=== PATIENT | female | born 1990 | race Caucasian/White ===

== ENCOUNTER → 2019-11-22 | Outpatient (CLI) | payer MEDICAID ==
--- NOTE | 2019-11-22 16:37 | RADIOLOGY REPORT (SQ) ---
EXAM DESCRIPTION: U/S OB 14+ TRNABD 1GES W/O DOP COMPLETED DATE/TIME: 11/22/2019 4:12 pm REASON FOR STUDY: Z34.82 ENCOUNTER FOR SUPRVSN OF NORMAL , SECOND TRIMESTER Z34.82 ENCOUNT ER FOR SUPRVSN OF NORMAL , SECOND TRI COMPARISON: None. TECHNIQUE: Static and Dynamic grayscale imaging performed of gravid uterus using transabdominal appr oach. Additional selected color Doppler and spectral images recorded. All stored on PACS. LIMITATIONS: None. FINDINGS: FETUSES SEEN:1 EGA: 27 weeks 1 day. Calculated using BPD,FL,HC,AC documented on images. Discrepancy with clinical d ates ADAMARIS: 02/20/2020 EFW: 1,079 grams PERCENTILE: Not calculated. TAHIR: 6.9 PLACENTA: Posterior. Heterogeneous hypoechoic subchorionic appearance probably due to fibrin deposit ion. PRESENTATION: Breech. ANATOMY: HEART RATE: 157 beats per minute. FOUR CHAMBER HEART: Visualized. THREE VESSEL CORD: Yes. CORD INSERTION: Visualized. KIDNEYS AND BLADDER: Visualized. Appear normal. STOMACH: Visualized. Appears normal. SPINE: Normal as visualized. BRAIN AND LATERAL VENTRICLES: Visualized. Appear normal. OTHER: No other significant finding. MATERNAL ADNEXA: Maternal ovaries not visualized. CERVICAL LENGTH: 2.9 cm. Closed. OTHER: No other significant finding. IMPRESSION: LIVING INTRAUTERINE . ESTIMATED GESTATIONAL AGE 27 weeks 1 day. NO VISUALIZED ANOMALIES. Trimester of : Second trimester - 13 weeks 1 day to 27 weeks 6 days. TECHNICAL DOCUMENTATION: JOB ID: [id number] 2010 [employer]- All Rights Reserved Reading location - IP/workstation name: [email or web address]
== END ==
LOC: RAD 15:19
PROVIDERS: ATTEND Midwife
DX: Z34.82 Encounter for supervision of other normal pregnancy, second trimester (principal); Z3A.27 27 weeks gestation of pregnancy
CPT/HCPCS: 76805

== ENCOUNTER 2020-02-07 16:44 | Observation (INO) | payer MEDICAID ==
[2020-02-07 18:24] LABS: APPEARANCE,URINE CLEAR; BILIRUBIN,URINE NEGATIVE (NEGATIVE); COLOR,URINE STRAW; GLUCOSE, URINE NEGATIVE (NEGATIVE); KETONES,URINE NEGATIVE (NEGATIVE); LEUKOCYTE ESTERASE,URINE TRACE (NEGATIVE); NITRITE,URINE NEGATIVE (NEGATIVE); PROTEIN,URINE NEGATIVE (NEGATIVE); URINE SPECIFIC GRAVITY 1.004; UROBILINOGEN,URINE NEGATIVE mg/dL (<2.0)
[2020-02-07 18:45] LABS: URINE AMPHETAMINES SCREEN NEGATIVE; URINE BARBITURATES SCREEN NEGATIVE; URINE BENZODIAZEPINES SCREEN NEGATIVE; URINE MARIJUANA (THC) SCREEN NEGATIVE; URINE METHADONE SCREEN NEGATIVE; URINE PHENCYCLIDINE SCREEN NEGATIVE
[2020-02-07 19:05] LABS: URINE COCAINE SCREEN UNCONFIRMED POSITIVE
--- NOTE | 2020-02-07 19:18 | RADIOLOGY REPORT (SQ) ---
EXAM DESCRIPTION: U/S PROFILE W/O STRESS IMAGES COMPLETED DATE/TIME: 02/07/2020 6:58 pm REASON FOR STUDY: suboxone, non reactive NST COMPARISON: None. TECHNIQUE: Limited altamirano-scale realtime and static images of the fetus to measure specified parameter s. LIMITATIONS: None. FINDINGS: HEART RATE: 137 beats per minute. LV P: 4.3 x 6.1 cm. BREATHING MOVEMENT: 2 points. MOVEMENT: 2 points. POSTURE AND TONE: 2 points. QUALITATIVE TAHIR: 2 points. OTHER: No other significant finding. IMPRESSION: BIOPHYSICAL PROFILE: 04/19. Trimester of : Third - 28 weeks to delivery COMMENT: BREATHING MOVEMENTS: 2 POINTS: PRESENT 0 POINTS: ABSENT MOTION: 2 POINTS: PRESENT 0 POINTS: ABSENT TONE: 2 POINTS: PRESENT 0 POINTS: ABSENT AMNIOTIC FLUID VOLUME: 2 POINTS: LARGEST POCKET GREATER THAN 2 CM DEPTH. 0 POINTS: NO POCKET OF 2 CM. TECHNICAL DOCUMENTATION: JOB ID: [id number] 2010 [employer]- All Rights Reserved Reading location - IP/workstation name: [email or web address]
[2020-02-07] MEDS ORDERED: RINGERS SOLUTION,LACTATED 1,000 ML IV ONE (20:46)
[2020-02-07] MEDS ORDERED: RINGERS SOLUTION,LACTATED 1,000 ML IV PRN (20:46)
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
[2020-02-07] MEDS ORDERED: HYDROXYZINE PAMOATE 50 MG CAPSULE ONE (23:38)
[2020-02-07] MEDS ORDERED: HYDROXYZINE PAMOATE 50 MG CAPSULE PO ONE (23:59)
--- NOTE | 2020-02-08 07:09 | Non Stress Test Report ---
Non Stress Test Datetime Report Generated by CPN: 02/08/2020 07:09 DEMOGRAPHIC Test Number: 1 EGA NST: 38.2 EGA NST: 38.1 INDICATION Indication for Study (NST) Other: Suboxone Use Indication for Study (NST) Other: Suboxone VITAL SIGNS Temperature - NST: 98.7 Pulse - NST: 96 RESP - NST: 12 NBPSYS NST: 115 NBPDIA NST: 75 MONITORING Monitor Explained: Monitor Explained; Test Explained; Patient Verbalized Understanding Monitor Explained: Monitor Explained; Test Explained; Patient Verbalized Understanding Time on Monitor: 02/08/2020 18:07 Time on Monitor: 02/07/2020 16:52 Time off Monitor: 02/08/2020 18:27 NST Duration: 20 NST INTERVENTIONS NST Interventions: PO Hydration; IV Fluids; Reposition Patient NST Interventions: PO Hydration; Reposition Patient Physician Notified NST: Kevin WRIGHT Physician Notified NST: Kristin Griffin RN BABY A: [id number] BABY A Movement : Present Movement : Present Contraction Frequency : 2-5 FHR Baseline : 135 Accelerations : 15X15 Accelerations : 15X15 Decelerations : None Decelerations : None Variability : Moderate 6-25bpm Variability : Moderate 6-25bpm NST Review: Meets Criteria for Reactive NST NST Review: Meets Criteria for Reactive NST NST Review and Verified By : CRISTIAN Abernathy NST Results: Reactive NST Results: Reactive NST REPORT Report Trigger: Send Report
--- NOTE | 2020-02-08 07:10 | PDOC DISCHARGE SUMMARY ---
Impression - Admit/DC Date/PCP Admission Date/Primary Care Provider: 02/07/20 21:01 SIL JEONG MD Discharge Date: 02/08/20 - Discharge Diagnosis (1) History of opioid abuse Is this a current diagnosis for this admission?: Yes (2) Positive urine drug screen Is this a current diagnosis for this admission?: Yes (3) Uterine contractions or other obstetric complaints Is this a current diagnosis for this admission?: Yes - Assessment Summary: 29yo at 38+2ega now admitted for contractions q 2 minutes and admitted for positive UDS (cocaine) and reports that she is taking someone elses suboxone. She is followed for her at [facility]. She was monitored overnight and contractions have finally ceased and her pain is better. Abdomen is now soft with only irreg coontractions. - Additional Information Resuscitation Status: Full Code Discharge Diet: As Tolerated Discharge Activity: Activity As Tolerated Referrals: SIL JEONG MD [Primary Care Provider] - Home Medications: Buprenorphine HCl/Naloxone HCl [Suboxone 2 mg-0.5 mg Sl Film] 1 film DAILY 02/07/20 History of Present Illiness History of Present Illness: MOOSE FLOREZ is a 29yo at 38+2ega now admitted for contractions q 2 minutes and admitted for positive UDS (cocaine) and reports that she is taking someone elses suboxone. She is followed for her at [facility]. She was monitored overnight and contractions have finally ceased and her pain is better. Abdomen is now soft with only irreg coontractions. Hospital Course Hospital Course: She was monitored overnight and contractions have finally ceased and her pain is better. Abdomen is now soft with only irreg coontractions. She will f/u with [facility] to continue her Physical Exam - Physical Exam Vital Signs: Intake & Output 02/07/20 02/08/20 02/09/20 06:59 06:59 06:59 Weight 66.5 kg General appearance: PRESENT: no acute distress, well-developed, well-nourished Head exam: PRESENT: atraumatic, normocephalic Respiratory exam: PRESENT: chest wall tenderness, symmetrical, unlabored Cardiovascular exam: PRESENT: RRR. ABSENT: diastolic murmur, rubs, systolic murmur Pulses: PRESENT: normal dorsalis pedis pul, +2 pedal pulses bilateral Vascular exam: PRESENT: normal capillary refill GI/Abdominal exam: PRESENT: normal bowel sounds, soft. ABSENT: distended, guarding, mass, organolmegaly, rebound, tenderness Rectal exam: PRESENT: deferred Extremities exam: PRESENT: full ROM. ABSENT: calf tenderness, clubbing, pedal edema Neurological exam: PRESENT: alert, awake, oriented to person, oriented to place, oriented to time, oriented to situation, CN II-XII grossly intact. ABSENT: motor sensory deficit Psychiatric exam: PRESENT: appropriate affect, normal mood. ABSENT: homicidal ideation, suicidal ideation Skin exam: PRESENT: dry, intact, warm. ABSENT: cyanosis, rash Results Laboratory Results: Urine Color STRAW 02/07/20 17:58 Urine Appearance CLEAR 02/07/20 17:58 Urine pH 8.0 (5.0-9.0) 02/07/20 17:58 Ur Specific [place] 1.004 02/07/20 17:58 Urine Protein NEGATIVE mg/dL (NEGATIVE) 02/07/20 17:58 Urine Glucose (UA) NEGATIVE mg/dL (NEGATIVE) 02/07/20 17:58 Urine Ketones NEGATIVE mg/dL (NEGATIVE) 02/07/20 17:58 Urine Blood NEGATIVE (NEGATIVE) 02/07/20 17:58 Urine Nitrite NEGATIVE (NEGATIVE) 02/07/20 17:58 Urine Bilirubin NEGATIVE (NEGATIVE) 02/07/20 17:58 Urine Urobilinogen NEGATIVE mg/dL (<2.0) 02/07/20 17:58 Ur Leukocyte Esterase TRACE (NEGATIVE) H 02/07/20 17:58 Urine Ascorbic Acid NEGATIVE (NEGATIVE) 02/07/20 17:58 Urine Opiates Screen NEGATIVE 02/07/20 17:58 Urine Methadone Screen NEGATIVE 02/07/20 17:58 Ur Barbiturates Screen NEGATIVE 02/07/20 17:58 Ur Phencyclidine Scrn NEGATIVE 02/07/20 17:58 Ur Amphetamines Screen NEGATIVE 02/07/20 17:58 U Benzodiazepines Scrn NEGATIVE 02/07/20 17:58 Urine Cocaine Screen UNCONFIRMED POSITIVE 02/07/20 17:58 U Marijuana (THC) Screen NEGATIVE 02/07/20 17:58 Impressions: Stress Test 02/07/20 17:54 IMPRESSION: BIOPHYSICAL PROFILE: 04/19. Trimester of : Third - 28 weeks to delivery Plan Health Concerns: needs to see a provider to get an rx for suboxone Stroke Is this a Stroke Patient?: No Acute Heart Failure - Is this a Heart Failure Patient?: No
== END 2020-02-08 07:15 | disposition home or self-care (01) ==
LOC: LC 16:44 → LR 21:01
PROVIDERS: ADMIT Student in an Organized Health Care Education/Training Program; ATTEND Student in an Organized Health Care Education/Training Program
DX: O62.8 Other abnormalities of forces of labor (principal); R82.5 Elevated urine levels of drugs, medicaments and biological substances; F11.11 Opioid abuse, in remission; Z3A.38 38 weeks gestation of pregnancy; Z91.410 Personal history of adult physical and sexual abuse
CPT/HCPCS: 59025; 36415; 81005; 80307; 80353; 76819; G0378 ×2; G0480; J3490

== ENCOUNTER 2020-02-14 16:11 | Inpatient (IN) | payer MEDICAID ==
[2020-02-14 17:12] LABS: APPEARANCE,URINE CLEAR; BILIRUBIN,URINE NEGATIVE (NEGATIVE); COLOR,URINE YELLOW; GLUCOSE, URINE NEGATIVE (NEGATIVE); KETONES,URINE NEGATIVE (NEGATIVE); LEUKOCYTE ESTERASE,URINE SMALL (NEGATIVE); NITRITE,URINE NEGATIVE (NEGATIVE); PROTEIN,URINE NEGATIVE (NEGATIVE); URINE SPECIFIC GRAVITY 1.011; UROBILINOGEN,URINE NEGATIVE mg/dL (<2.0)
[2020-02-14 17:28] LABS: URINE AMPHETAMINES SCREEN NEGATIVE; URINE BARBITURATES SCREEN NEGATIVE; URINE BENZODIAZEPINES SCREEN NEGATIVE; URINE MARIJUANA (THC) SCREEN NEGATIVE; URINE METHADONE SCREEN NEGATIVE; URINE PHENCYCLIDINE SCREEN NEGATIVE
[2020-02-14 17:30] LABS: URINE COCAINE SCREEN UNCONFIRMED POSITIVE
[2020-02-14] MEDS ORDERED: RINGERS SOLUTION,LACTATED 1,000 ML IV ONE (19:02)
[2020-02-14] MEDS ORDERED: RINGERS SOLUTION,LACTATED 1,000 ML IV PRN (19:02)
[2020-02-14] MEDS ORDERED: PROMETHAZINE HCL INJ 25 MG/1 ML VIAL IV ONE (19:03)
[2020-02-14] MEDS ORDERED: NALBUPHINE HCL INJ 10 MG/1 ML AMPULE INJ ONE (19:03)
[2020-02-14 19:43] LABS: ABSOLUTE BASOPHILS # (AUTO) 0.1 10^3/uL (0.0-0.2); ABSOLUTE EOSINOPHILS # (AUTO) 0.1 10^3/uL (0.0-0.6); ABSOLUTE LYMPHOCYTES (AUTO) 1.1 10^3/uL (0.5-4.7); ABSOLUTE MONOCYTES (AUTO) 0.8 10^3/uL (0.1-1.4); ABSOLUTE NEUT (AUTO) 10.8 10^3/uL (1.7-8.2); BASOPHILS % (AUTO) 0.5 % (0-2); EOSINOPHILS % (AUTO) 0.5 % (0-6); HEMATOCRIT 35.1 % (36.0-47.0); HEMOGLOBIN 11.5 g/dL (12.0-15.5); LYMPHOCYTES % (AUTO) 8.5 % (13-45); MEAN CORPUSCULAR HEMOGLOBIN 28.6 pg (27.0-33.4); MEAN CORPUSCULAR HGB CONC 32.7 g/dL (32.0-36.0); MEAN CORPUSCULAR VOLUME 88 fl (80-97); MONOCYTES % (AUTO) 6.5 % (3-13); PLATELET COUNT 337 10^3/uL (150-450); RED BLOOD COUNT 4.01 10^6/uL (3.72-5.28); TOTAL CELLS COUNTED % (AUTO) 100 %; WHITE BLOOD COUNT 12.9 10^3/uL (4.0-10.5)
[2020-02-14] MEDS ORDERED: OXYTOCIN 10 UNIT/ML VIAL ONE (20:08)
[2020-02-14] MEDS ORDERED: MISOPROSTOL 0.2 MG TABLET ONE (20:08)
[2020-02-14] MEDS ORDERED: EPHEDRINE SULFATE INJ 50 MG/1 ML AMPULE ONE (20:08)
[2020-02-14] MEDS ORDERED: BUPIVACAINE HCL 0.25 % INJ/PF (2.5 MG/1 ML) 30 ML VIAL ONE (20:09)
[2020-02-14] MEDS ORDERED: LIDOCAINE 1% INJ-PF (10 MG/ML) 30 ML SDV ONE (20:09)
[2020-02-14] MEDS ORDERED: FENTANYL/BUPIVACAINE/NS/PF 300 MCG/150 ML RTUINJ EPI ONE (20:09)
[2020-02-14] MEDS ORDERED: OXYTOCIN/0.9 % SODIUM CHLORIDE 30 UNIT/500 ML RTUINJ ONE (20:09)
[2020-02-15] MEDS ORDERED: MAGNESIUM HYDROXIDE SUSP 30 ML UDCUP PO PRN
[2020-02-15] MEDS ORDERED: DIBUCAINE 1% OINTMENT 28 GM TP PRN
[2020-02-15] MEDS ORDERED: MEASLES,MUMPS&RUBELLA VACC/PF 0.5 ML VIAL SUBCUT PRN
[2020-02-15] MEDS ORDERED: NA PHOS,M-B/NA PHOS,DI-BA (ADULT) 133 ML ENEMA PR PRN
[2020-02-15] MEDS ORDERED: GLYCERIN/WITCH HAZEL LEAF 1 EACH MED..WIPE TP PRN
[2020-02-15] MEDS ORDERED: PROMETHAZINE HCL 25 MG SUPP.RECT PR PRN
[2020-02-15] MEDS ORDERED: DIPHENHYDRAMINE HCL 25 MG CAPSULE PO PRN
[2020-02-15] MEDS ORDERED: ACETAMINOPHEN 650 MG SUPP.RECT PR PRN
[2020-02-15] MEDS ORDERED: OXYTOCIN/0.9 % SODIUM CHLORIDE 30 UNIT/500 ML RTUINJ IV PRN
[2020-02-15] MEDS ORDERED: PROMETHAZINE HCL INJ 25 MG/1 ML VIAL IV PRN
[2020-02-15] MEDS ORDERED: BENZOCAINE/MENTHOL AEROSOL SPRAY 56 ML TOP PRN
[2020-02-15] MEDS ORDERED: ACETAMINOPHEN WITH CODEINE #3 TABLET PO PRN ×2
[2020-02-15] MEDS ORDERED: PSEUDOEPHEDRINE HCL 30 MG TABLET PO PRN
[2020-02-15] MEDS ORDERED: DIPH/PERTUSS(ACELL)/TETANUS VAC/PF 0.5 ML SYR (>=10YO) IM PRN
[2020-02-15] MEDS ORDERED: PROMETHAZINE HCL 25 MG TABLET PO PRN
[2020-02-15] MEDS ORDERED: ZOLPIDEM TARTRATE 5 MG TABLET PO PRN
--- NOTE | 2020-02-15 01:23 | Delivery Summary ---
Del Sum A-C Datetime Report Generated by CPN: 02/15/2020 01:23 DELIVERY PERSONNEL DELIVERY PERSONNEL: [id number] Delivery Doctor:: Radha Guan MD Labor and Delivery Nurse:: Maribell Bell RNseafood preparer Nurse:: Yoselin Marshall RN Nursery Nurse:: Angelica Atkinson RN MATERNAL INFORMATION Delivery Anesthesia: Epidural Medications After Delivery: Pitocin Bolus-Please Comment; Pitocin 30 Units in 500ml NS/D5W Estimated Blood Loss (ml): 250 Delivery QBL: 250 Maternal Complications: Precipitous Labor (<3hrs) LABOR SUMMARY EDC: 02/20/2020 00:00 No. Babies in Womb: 1 Attempted: No Labor Anesthesia: Epidural LABOR INFORMATION Reason for Induction: Not Applicable Onset of Labor: 02/14/2020 19:48 Complete Dilatation: 02/14/2020 23:35 Oxytocin: N/A Group B Beta Strep: negative Antibiotics # of Doses: n/a Steroids Given: None Reason Steroids Not Administered: Not Applicable MEMBRANES Membranes Rupture Method: Artificial Rupture of Membranes: 02/14/2020 19:48 Length of Rupture (hr): 27.87 Amniotic Fluid Color: Clear Amniotic Fluid Amount: Small Amniotic Fluid Odor: Normal STAGES OF LABOR Stage 1 hr: 3 Stage 1 min: 47 Stage 2 hr: 24 Stage 2 min: 5 Stage 3 hr: -23 Stage 3 min: -53 Total Time in Labor hr: 3 Total Time in Labor min: 59 VAGINAL DELIVERY Episiotomy: None Laceration #1: Vaginal Laceration Extension #1: N/A Laceration #2: Vaginal Laceration Extension #2: N/A Laceration #3: None Laceration Extension #3: N/A Laceration Repair: Yes Laceration Repair Note: Bilateral vaginal lacerations repaired with 3-0 chromic suture with good hemostasis and approximation of tissue. Sponge Count Correct: Vaginal Sweep Performed Sharps Count Correct: Yes CSECTION DELIVERY Primary Indication: N/A Secondary Indication: N/A CSection Incidence: N/A Labor: N/A Elective: N/A CSection Incision: N/A BABY A INFORMATION Delivery Date/Time: 02/15/2020 23:40 Method of Delivery: Vaginal Nurse Controlled Delivery: No Born in Route : No : N/A Forceps: N/A Vacuum Extraction: N/A Shoulder Dystocia : No PRESENTATION/POSITION BABY A Presentation: Cephalic Cephalic Presentation: Vertex Vertex Position: Left Occipital Anterior Breech Presentation: N/A PLACENTA INFORMATION BABY A Placenta Delivery Time : 02/14/2020 23:47 Placenta Method of Delivery: Spontaneous Placenta Status: Delivered SCORES BABY A Heart Rate 1 min: >100 bpm Resp Effort 1 min: Good Cry Reflex Irritability 1 min: Cough or Sneeze or Pulls Away Muscle Tone 1 min: Active Motion Color 1 min: Body [place], Extremities Blue Resuscitation Effort 1 min: Tactile Stimulation SCORE 1 MIN: 9 Heart Rate 5 min: >100 bpm Resp Effort 5 min: Good Cry Reflex Irritability 5 min: Cough or Sneeze or Pulls Away Muscle Tone 5 min: Active Motion Color 5 min: Body [place], Extremities Blue Resuscitation Effort 5 min: Tactile Stimulation SCORE 5 MIN: 9 INFORMATION BABY A Gestational Age at Delivery: 39.1 Gestational Status: Full Term- 39- 40.6 Weeks Outcome : Liveborn Condition : Stable Sex: Female IDENTIFICATION BABY A Infant Verification Date/Time: 02/15/2020 00:41 ID Band Number: [id number] Mother's Name Verified: Yes RN Verifying Infant: Shira Bell, RN and E. Jilek, RN WEIGHT/LENGTH BABY A Infant Birthweight (gm): 2500 Infant Weight (lb): 5 Weight (oz): 8 Infant Length (in): 18.50 Length (cm): 46.99 CORD INFORMATION BABY A No. Cord Vessels: 3 Nuchal Cord : N/A Cord Blood Taken: Yes-For Eval (Mom's Blood Type - or O+) Suction: Mouth ASSESSMENT BABY A Infant Complications: None Physical Findings at Delivery: Within Normal Limits Skin to Skin: Yes Transferred To: Remains with Mother BABY B INFORMATION : N/A SIGNATURES Signature: with User ID: [email or web address]
[2020-02-15] MEDS: IBUPROFEN 800 MG TABLET PO SCH ×3 (05:09→21:25)
--- NOTE | 2020-02-15 09:57 | PDOC PROGRESS REPORT ---
Subjective-OB Progress Note for:: 02/15/20 Subjective: Pt doing well, no concerns. She reports light bleeding, reg diet and voiding without difficulty. Physical Exam (OB) Vital Signs: Temp Pulse Resp BP Pulse Ox 97.5 F 97 16 116/77 100 02/15/20 07:38 02/15/20 07:38 02/15/20 07:38 02/15/20 07:38 02/15/20 07:38 Intake & Output 02/14/20 02/15/20 02/16/20 06:59 06:59 06:59 Intake Total 480 Balance 480 Weight 68.5 kg - Lochia Lochia Amount: Scant < 10 ml Lochia Color: Rubra/Red - Abdomen Description: Soft Hernia Present: No Fundal Description: Firm, Midline Fundal Height: u/u - u/2 Objective-Diagnostic Laboratory: 02/14/20 19:27 02/14/20 02/14/20 02/14/20 16:31 19:27 19:27 WBC 12.9 H RBC 4.01 Hgb 11.5 L Hct 35.1 L MCV 88 MCH 28.6 MCHC 32.7 RDW 13.0 Plt Count 337 Seg Neutrophils % 84.0 H Urine Color YELLOW Urine Appearance CLEAR Urine pH 7.0 Ur Specific [place] 1.011 Urine Protein NEGATIVE Urine Glucose (UA) NEGATIVE Urine Ketones NEGATIVE Urine Blood NEGATIVE Urine Nitrite NEGATIVE Ur Leukocyte Esterase SMALL H Blood Type O POSITIVE Antibody Screen NEGATIVE Assessment and Plan(PN) - Assessment and Plan (1) (normal spontaneous vaginal delivery) Is this a current diagnosis for this admission?: Yes (2) History of opioid abuse Is this a current diagnosis for this admission?: Yes (3) Positive urine drug screen Is this a current diagnosis for this admission?: Yes (4) Uterine contractions or other obstetric complaints Is this a current diagnosis for this admission?: Yes - Time Spent with Patient Time with patient: Less than 15 minutes Medications reviewed and adjusted accordingly: Yes - Disposition Anticipated Discharge: Home Within: within 24 hours
[2020-02-15] MEDS: PRENATAL VITAMIN W DHA CAPSULE PO SCH (09:59)
[2020-02-15] MEDS: DOCUSATE SODIUM 100 MG CAPSULE PO SCH ×2 (09:59→17:52)
[2020-02-15] MEDS: FAMOTIDINE 20 MG TABLET PO SCH ×2 (09:59→21:30)
[2020-02-15] MEDS: SENNOSIDES/DOCUSATE 8.6-50 MG 1 EACH TABLET PO SCH (09:59)
[2020-02-15] MEDS: FERROUS SULFATE 325 MG TABLET PO SCH ×2 (09:59→17:52)
[2020-02-16] MEDS: IBUPROFEN 800 MG TABLET PO SCH ×2 (05:08→14:58)
[2020-02-16 06:19] LABS: HEMATOCRIT 28.5 % (36.0-47.0); HEMOGLOBIN 9.6 g/dL (12.0-15.5); MEAN CORPUSCULAR HEMOGLOBIN 29.2 pg (27.0-33.4); MEAN CORPUSCULAR HGB CONC 33.5 g/dL (32.0-36.0); MEAN CORPUSCULAR VOLUME 87 fl (80-97); PLATELET COUNT 293 10^3/uL (150-450); RED BLOOD COUNT 3.28 10^6/uL (3.72-5.28); WHITE BLOOD COUNT 13.9 10^3/uL (4.0-10.5)
[2020-02-16 07:55] VITALS: BP 103/58
--- NOTE | 2020-02-16 07:58 | PDOC DISCHARGE SUMMARY ---
Impression - Admit/DC Date/PCP Admission Date/Primary Care Provider: 02/14/20 19:00 SIL JEONG MD Discharge Date: 02/16/20 - Discharge Diagnosis (1) (normal spontaneous vaginal delivery) Is this a current diagnosis for this admission?: Yes (2) History of opioid abuse Is this a current diagnosis for this admission?: Yes (3) Positive urine drug screen Is this a current diagnosis for this admission?: Yes (4) Uterine contractions or other obstetric complaints Is this a current diagnosis for this admission?: Yes - Additional Information Resuscitation Status: Full Code Discharge Activity: Balance Activity w/Rest, Pelvic Rest Referrals: SIL JEONG MD [Primary Care Provider] - Home Medications: Buprenorphine HCl/Naloxone HCl [Suboxone 2 mg-0.5 mg Sl Film] 1 film DAILY 02/07/20 95/Iron Fum/Folic/Dha [ + Dha Combo Pack] 1 each PO DAILY 02/14/20 HPI Gestational Age: 39.1 Reason(s) for Admission: Onset of Labor Procedures: NST Intrapartum Procedure(s): Spontaneous Vaginal Delivery Complication(s): Laceration-Vaginal Laceration-Degree: 1st Results Laboratory Results: WBC 13.9 10^3/uL (4.0-10.5) H 02/16/20 05:31 RBC 3.28 10^6/uL (3.72-5.28) L 02/16/20 05:31 Hgb 9.6 g/dL (12.0-15.5) L 02/16/20 05:31 Hct 28.5 % (36.0-47.0) L 02/16/20 05:31 MCV 87 fl (80-97) 02/16/20 05:31 MCH 29.2 pg (27.0-33.4) 02/16/20 05:31 MCHC 33.5 g/dL (32.0-36.0) 02/16/20 05:31 RDW 13.0 % (11.5-14.0) 02/16/20 05:31 Plt Count 293 10^3/uL (150-450) 02/16/20 05:31 Lymph % (Auto) 8.5 % (13-45) L 02/14/20 19:27 [place]on % (Auto) 6.5 % (3-13) 02/14/20 19: Eos % (Auto) 0.5 % (0-6) 02/14/20 19: Baso % (Auto) 0.5 % (0-2) 02/14/20 19:27 Absolute Neuts (auto) 10.8 10^3/uL (1.7-8.2) H 02/14/20 19: Absolute Lymphs (auto) 1.1 10^3/uL (0.5-4.7) 02/14/20 19: Absolute Monos (auto) 0.8 10^3/uL (0.1-1.4) 02/14/20 19: Absolute Eos (auto) 0.1 10^3/uL (0.0-0.6) 02/14/20 19: Absolute Basos (auto) 0.1 10^3/uL (0.0-0.2) 02/14/20 19: Seg Neutrophils % 84.0 % (42-78) H 02/14/20 19:27 Urine Color YELLOW 02/14/20 16:31 Urine Appearance CLEAR 02/14/20 16:31 Urine pH 7.0 (5.0-9.0) 02/14/20 16:31 Ur Specific [place] 1.011 02/14/20 16:31 Urine Protein NEGATIVE mg/dL (NEGATIVE) 02/14/20 16:31 Urine Glucose (UA) NEGATIVE mg/dL (NEGATIVE) 02/14/20 16:31 Urine Ketones NEGATIVE mg/dL (NEGATIVE) 02/14/20 16:31 Urine Blood NEGATIVE (NEGATIVE) 02/14/20 16:31 Urine Nitrite NEGATIVE (NEGATIVE) 02/14/20 16:31 Urine Bilirubin NEGATIVE (NEGATIVE) 02/14/20 16:31 Urine Urobilinogen NEGATIVE mg/dL (<2.0) 02/14/20 16:31 Ur Leukocyte Esterase SMALL (NEGATIVE) H 02/14/20 16:31 Urine Ascorbic Acid NEGATIVE (NEGATIVE) 02/14/20 16:31 Urine Opiates Screen NEGATIVE 02/14/20 16:31 Urine Methadone Screen NEGATIVE 02/14/20 16:31 Ur Barbiturates Screen NEGATIVE 02/14/20 16:31 Ur Phencyclidine Scrn NEGATIVE 02/14/20 16:31 Ur Amphetamines Screen NEGATIVE 02/14/20 16:31 U Benzodiazepines Scrn NEGATIVE 02/14/20 16:31 Urine Cocaine Screen UNCONFIRMED POSITIVE 02/14/20 16:31 U Marijuana (THC) Screen NEGATIVE 02/14/20 16:31 RPR NONREACTIVE (NONREACTIVE) 02/14/20 19:27 Blood Type O POSITIVE 02/14/20 19:27 Antibody Screen NEGATIVE 02/14/20 19:27 Plan Plan of Treatment: RTC 4 wks Time Spent: Less than 30 Minutes
[2020-02-16] MEDS: FERROUS SULFATE 325 MG TABLET PO SCH (09:33)
[2020-02-16] MEDS: FAMOTIDINE 20 MG TABLET PO SCH (09:33)
[2020-02-16] MEDS: DOCUSATE SODIUM 100 MG CAPSULE PO SCH (09:33)
[2020-02-16] MEDS: SENNOSIDES/DOCUSATE 8.6-50 MG 1 EACH TABLET PO SCH (09:33)
[2020-02-16] MEDS: PRENATAL VITAMIN W DHA CAPSULE PO SCH (09:33)
== END 2020-02-16 18:00 | disposition home or self-care (01) | DRG 806 ==
LOC: LC 16:11 → LR 19:00 → 2S 02-15 02:00
PROVIDERS: ADMIT Obstetrics & Gynecology; ATTEND Obstetrics & Gynecology
PROC: 10E0XZZ Delivery of Products of Conception, External Approach (ICD-10-PCS; principal; 2020-02-15)
PROC: 0HQ9XZZ Repair Perineum Skin, External Approach (ICD-10-PCS; 2020-02-15)
PROC: 10907ZC Drainage of Amniotic Fluid, Therapeutic from Products of Conception, Via Natural or Artificial Opening (ICD-10-PCS; 2020-02-15)
DX: O62.3 Precipitate labor (principal); O71.4 Obstetric high vaginal laceration alone; Z37.0 Single live birth; Z3A.39 39 weeks gestation of pregnancy; F11.11 Opioid abuse, in remission; Z79.899 Other long term (current) drug therapy; R82.5 Elevated urine levels of drugs, medicaments and biological substances
CPT/HCPCS: 1967; 36415; 59414; 80307; 80353; 81005; 85025; 85027; 86592; 86850; 86900; 86901; 94760; G0480; J2590; J3010; J3490